=== PATIENT | female | born 1970 | race African-American/Black ===

== ENCOUNTER 2016-06-11 08:22 | Emergency (ER) | payer MEDICAID ==
--- NOTE | 2016-06-11 09:16 | ER Document Report ---
ED General - General Chief Complaint: Wrist Pain Stated Complaint: WRIST PAIN Mode of Arrival: Ambulatory Information source: Patient Notes: 45 yr old female presents with complaitns of left wrist pain. pt denies any fevers or chills, nausea or vomiting. pt notes that she has been serving her whole life, notes she is left handed. denies any trauma TRAVEL OUTSIDE OF THE [place] IN LAST 30 DAYS: No - HPI Onset: Just prior to arrival Onset/Duration: Sudden Quality of pain: Achy Severity: Mild Pain Level: 1 Associated symptoms: Body/muscle aches Exacerbated by: Movement Relieved by: Denies Similar symptoms previously: No Recently seen / treated by doctor: No - Related Data Allergies/Adverse Reactions: No Known Allergies Allergy (Verified 06/11/16 08:26) Past Medical History - Social History Smoking Status: Unknown if Ever Smoked Cigarette use (# per day): No Chew tobacco use (# tins/day): No Smoking Education Provided: No Frequency of alcohol use: None Drug Abuse: None Family History: Arthritis, DM, Hyperlipidemia, Hypertension Patient has suicidal ideation: No Patient has homicidal ideation: No Renal/ Medical History: Reports: Hx Ectopic . Denies: Hx Peritoneal Dialysis Past Surgical History: Reports: Hx Gynecologic Surgery - ectopic - Immunizations Immunizations up to date: Yes Hx Diphtheria, Pertussis, Tetanus Vaccination: Yes Review of Systems - Review of Systems Notes: REVIEW OF SYSTEMS: CONSTITUTIONAL : Denies fever, chills, or sweats. Denies recent illness. EENT: Denies eye, ear, throat, or mouth pain or symptoms. Denies nasal or sinus congestion or discharge. Denies throat, tongue, or mouth swelling or difficulty swallowing. CARDIOVASCULAR: Denies chest pain. Denies palpitations or racing or irregular heart beat. Denies ankle edema. RESPIRATORY: Denies cough, cold, or chest congestion. Denies shortness of breath, difficulty breathing, or wheezing. GASTROINTESTINAL: Denies abdominal pain or distention. Denies nausea, vomiting , or diarrhea. Denies blood in vomitus, stools, or per rectum. Denies black, tarry stools. Denies constipation. GENITOURINARY: Denies difficulty urinating, painful urination, burning, frequency, blood in urine, or discharge. FEMALE GENITOURINARY: Denies vaginal bleeding, heavy or abnormal periods, irregular periods. Denies vaginal discharge or odor. MUSCULOSKELETAL: wrist pain SKIN: Denies rash, lesions or sores. HEMATOLOGIC : Denies easy bruising or bleeding. LYMPHATIC: Denies swollen, enlarged glands. NEUROLOGICAL: Denies confusion or altered mental status. Denies passing out or loss of consciousness. Denies dizziness or lightheadedness. Denies headache. Denies weakness or paralysis or loss of use of either side. Denies problems with gait or speech. Denies sensory loss, numbness, or tingling. Denies seizures. PSYCHIATRIC: Denies anxiety or stress. Denies depression, suicidal ideation, or homicidal ideation. ALL OTHER SYSTEMS REVIEWED AND NEGATIVE. Dictation was performed using [employer] voice recognition software PHYSICAL EXAMINATION: GENERAL: Well-appearing, well-nourished and in no acute distress. HEAD: Atraumatic, normocephalic. EYES: Pupils equal round and reactive to light, extraocular movements intact, conjunctiva are normal. ENT: Nares patent, oropharynx clear without exudates. Moist mucous membranes. NECK: Normal range of motion, supple without lymphadenopathy LUNGS: Breath sounds clear to auscultation bilaterally and equal. No wheezes rales or rhonchi. HEART: Regular rate and rhythm without murmurs ABDOMEN: Soft, nontender, nondistended abdomen. No guarding, no rebound. No masses appreciated. Female : deferred Musculoskeletal: tenderness at the distal radius ulnar , no deformity NEUROLOGICAL: Cranial nerves grossly intact. Normal speech, normal gait. Normal sensory, motor exams PSYCH: Normal mood, normal affect. SKIN: Warm, Dry, normal turgor, no rashes or lesions noted. Physical Exam - Vital signs Vitals: Temp Pulse Resp BP Pulse Ox 97.5 F 66 16 144/92 H 98 06/11/16 08:27 06/11/16 08:27 06/11/16 08:27 06/11/16 08:27 06/11/16 08:27 Course - Re-evaluation Re-evalutation: 06/11/16 09:33 X-ray noted no significant abnormality, I believe this is secondary to overuse. Patient will be placed in a cock-up splint and is otherwise stable for discharge to follow-up with orthopedics After performing a Medical Screening Examination, I estimate there is LOW risk for INTRACRANIAL HEMORRHAGE, UNSTABLE SPINE FRACTURE, CENTRAL CORD SYNDROME, CAUDA EQUINA, THORACIC AORTIC DISSECTION, PNEUMOTHORAX, PERFORATED BOWEL, RUPTURED ABDOMINAL AORTIC ANEURYSM, ACUTE TENDON RUPTURE, COMPARTMENT SYNDROME, or OPEN FRACTURE, thus I consider the discharge disposition reasonable. Also, there is no evidence or peritonitis, sepsis, or toxicity. The patient and I have discussed the diagnosis and risks, and we agree with discharging home to follow-up with their primary doctor with the understanding that symptoms and presentations can change. We also discussed returning to the Emergency Department immediately if new or worsening symptoms occur. We have discussed the symptoms which are most concerning (e.g., bloody stool, fever, changing or worsening pain, vomiting) that necessitate immediate return. - Vital Signs Vital signs: Temp Pulse Resp BP Pulse Ox 97.5 F 66 16 144/92 H 98 06/11/16 08:27 06/11/16 08:27 06/11/16 08:27 06/11/16 08:27 06/11/16 08:27 - Diagnostic Test Radiology reviewed: Image reviewed, Reports reviewed Procedures - Immobilization Left Wrist Time completed: 09:34 Pre-Proc Neuro Vasc Exam: Normal Immobilizer type: Cock-up Performed by: PCT Post-Proc Neuro Vasc Exam: Normal Alignment checked and good: Yes Discharge - Discharge Clinical Impression: Wrist pain Qualifiers: Laterality: left Qualified Code(s): M25.532 - Pain in left wrist Strain of wrist Qualifiers: Encounter type: initial encounter Laterality: left Qualified Code(s): S66.912A - Strain of unspecified muscle, fascia and tendon at wrist and hand level, left hand, initial encounter Condition: Stable Disposition: HOME, SELF-CARE Additional Instructions: Evaluation today notes no fracture, I believe your pain is secondary to overuse. Please allow patient to work with dishes and limit movement of left wrist for 2 weeks Prescriptions: Naproxen 500 mg PO BID #30 tablet Referrals: JYOTI PHOENIX DO [ACTIVE STAFF] - Follow up in 1 week
[2016-06-11 09:42] VITALS: BP 123/86
== END 2016-06-11 09:42 | disposition home or self-care (01) ==
LOC: ER 08:22
DX: S66.912A Strain of unspecified muscle, fascia and tendon at wrist and hand level, left hand, initial encounter (principal); M25.532 Pain in left wrist; X58.XXXA Exposure to other specified factors, initial encounter
CPT/HCPCS: 99283; 73110; L3984

== ENCOUNTER → 2016-09-08 | Outpatient (CLI) | payer MEDICAID ==
--- NOTE | 2016-09-08 10:34 | WOMENS IMAGING REPORT ---
EXAM DESCRIPTION: BILAT SCREENING MAMMO W/CAD COMPLETED DATE/TIME: 09/08/2016 7:41 am REASON FOR STUDY: Z12.31, ROUTINE SCREENING MAMMO Z12.31 ENCNTR SCREEN MAMMOGRAM FOR MALIGNANT NEOP LASM OF [place] COMPARISON: Baseline TECHNIQUE: Standard craniocaudal and mediolateral oblique views of each breast recorded using Epiclista l acquisition. LIMITATIONS: None. FINDINGS: No masses, calcifications or architectural distortion. No areas of suspicion. Read with the assistance of CAD. .[facility] - R2 Cenova Version 1.3 .[facility] - R2 Cenova Version 1.3 .[facility] - R2 Cenova Version 2.4 .[facility] [place] R2 Cenova Version 2.4 .[facility] - R2 Restaurant District Manager Version 9.2 IMPRESSION: NORMAL MAMMOGRAM. BIRADS 1. BREAST DENSITY: b. There are scattered areas of fibroglandular density. BIRAD: 1 NEGATIVE RECOMMENDATION: ROUTINE SCREENING COMMENT: The patient has been notified of the results by letter per MQSA requirements. Additional no tification policies are in place for contacting patient with suspicious or incomplete findings. Quality ID #[id number]: The [employer] recommends an annual screening mammogram for women aged 40 years or over. This facility utilizes a reminder system to ensure that all patients receive reminder letters, and/or direct phone calls for appointments. This includes reminders for routine scr eening mammograms, diagnostic mammograms, or other Breast Imaging Interventions when appropriate. Th is patient will be placed in the appropriate reminder system. The [employer] (ACR) has developed recommendations for screening MRI of the breast s in certain patient populations, to be used in conjunction with mammography. Breast MRI surveillanc e may be appropriate for women with more than 20% lifetime risk of developing breast cancer as deter mined by genetic testing, significant family history of the disease, or history of mantle radiation f or Hodgkins Disease. ACR Practice Guidelines 2008. TECHNICAL DOCUMENTATION: FINDING NUMBER: (1) ASSESSMENT: (1) JOB ID: [id number] [employer]- All Rights Reserved
== END ==
LOC: WI 07:20
PROVIDERS: ATTEND Family Medicine
DX: Z12.31 Encounter for screening mammogram for malignant neoplasm of breast (principal)
CPT/HCPCS: 77067; G0202

== ENCOUNTER 2017-01-18 07:09 | Emergency (ER) | payer SELFPAY ==
[2017-01-18 07:14] VITALS: BP 140/86
--- NOTE | 2017-01-18 07:35 | ER Document Report ---
HPI - HPI Patient complains to provider of: rash Onset: Other - one month Pain Level: 3 Context: Patient is a 46 year old female who presents to the ED complaining of rash on her chest between her breasts for one month. She describes it as red, itchy and flat. She denies any new household/bathing products. Denies any allergies. Has not resolved nor has t spread. She denies any burning, sharp pain radiating around her chest. Otherwise healthy female - REPRODUCTIVE Reproductive: DENIES: : - DERM Skin Color: Normal Past Medical History - Social History Smoking Status: Unknown if Ever Smoked Chew tobacco use (# tins/day): No Frequency of alcohol use: Occasional Drug Abuse: None Family History: Arthritis, DM, Hyperlipidemia, Hypertension Patient has suicidal ideation: No Patient has homicidal ideation: No - Past Medical History Cardiac Medical History: Denies: Hx Coronary Artery Disease, Hx Heart Attack, Hx Hypertension Pulmonary Medical History: Denies: Hx Asthma, Hx Bronchitis, Hx COPD, Hx Pneumonia Neurological Medical History: Denies: Hx Cerebrovascular Accident, Hx Seizures Renal/ Medical History: Reports: Hx Ectopic . Denies: Hx Peritoneal Dialysis Musculoskeltal Medical History: Denies Hx Arthritis Past Surgical History: Reports: Hx Gynecologic Surgery - ectopic , Hx Orthopedic Surgery - left wrist - Immunizations Immunizations up to date: Yes Hx Diphtheria, Pertussis, Tetanus Vaccination: Yes - "Last year" Vertical Provider Document - CONSTITUTIONAL Agree With Documented VS: Yes Exam Limitations: No Limitations General Appearance: WD/WN, No Apparent Distress - INFECTION CONTROL TRAVEL OUTSIDE OF THE [place] IN LAST 30 DAYS: No - RESPIRATORY O2 Sat by Pulse Oximetry: 96 - CARDIOVASCULAR Pulses: Normal: Radial - MUSCULOSKELETAL/EXTREMETIES Musculoskeletal/Extremeties: MAEW, FROM, Non-Tender - NEURO Level of Consciousness: Awake, Alert, Appropriate - DERM Integumentary: Warm, Dry, Rash - patch of erythema on her chest this is slighty raised, no evidence of vesicular rash. Course - Re-evaluation Re-evalutation: 01/18/17 8:00 Patient is a 46 year old female who is hemodynamically stable, no acute distress and afebrile. Presentation today is consistent with tinea corporis. Low clinical suspicion for shingles given absence of pain, vesicular disease and dermatome distribution. Low suspicion for contact dermatitis given rash has no distribution consistent with contact dermatitis. Will treat with topical antifungal and can f/u with PCP in one week - Vital Signs Vital signs: Temp Pulse Resp BP Pulse Ox 98.2 F 64 18 140/86 H 96 01/18/17 07:12 01/18/17 07:12 01/18/17 07:12 01/18/17 07:12 01/18/17 07:12 Discharge - Discharge Clinical Impression: Rash Condition: Good Disposition: HOME, SELF-CARE Instructions: Skin Fungus ([facility]) Prescriptions: Clotrimazole 1% Topical [Lotrimin 1% Topical Soln 10 ml] 15 applic TP BID #1 bottle Forms: Return to Work
== END 2017-01-18 08:37 | disposition home or self-care (01) ==
LOC: ER 07:09
DX: R21 Rash and other nonspecific skin eruption (principal)
CPT/HCPCS: 99282

== ENCOUNTER 2018-04-16 23:50 | Emergency (ER) | payer SELFPAY ==
[2018-04-17] MEDS ORDERED: DEXAMETHASONE SOD PHOS INJ 10 MG/1 ML VIAL IM ONE (01:47)
--- NOTE | 2018-04-17 01:49 | ER Document Report ---
HPI - HPI Patient complains to provider of: neck pain Time Seen by Provider: 04/17/18 01:25 Pain Level: 1 Context: Patient is a 47-year-old female that comes to the emergency department for chief complaint of swollen areas under her chin and on her neck in the front that are mobile and mildly tender. She states these have worsened over the past 24 hours. She reports mild throat irritation but no overt sore throat. She has minimal congestion. No fever. Denies difficulty breathing or swallowing. Denies any other complaints. Takes no daily medications. Denies any past medical history. - CONSTITUTIONAL Constitutional: DENIES: Fever, Chills - EENT EENT: REPORTS: Sore Throat - knots on outsid - CARDIOVASCULAR Cardiovascular: DENIES: Chest pain - RESPIRATORY Respiratory: DENIES: Coughing - REPRODUCTIVE Reproductive: DENIES: : Past Medical History - General Information source: Patient - Social History Smoking Status: Never Smoker Chew tobacco use (# tins/day): No Frequency of alcohol use: Rare Drug Abuse: None Lives with: Family Family History: Arthritis, DM, Hyperlipidemia, Hypertension Patient has suicidal ideation: No Patient has homicidal ideation: No - Medical History Medical History: Negative - Past Medical History Cardiac Medical History: Denies: Hx Coronary Artery Disease, Hx Heart Attack, Hx Hypertension Pulmonary Medical History: Denies: Hx Asthma, Hx Bronchitis, Hx COPD, Hx Pneumonia Neurological Medical History: Denies: Hx Cerebrovascular Accident, Hx Seizures Renal/ Medical History: Reports: Hx Ectopic . Denies: Hx Peritoneal Dialysis Musculoskeletal Medical History: Denies Hx Arthritis Past Surgical History: Reports: Hx Gynecologic Surgery - ectopic , Hx Orthopedic Surgery - left wrist - Immunizations Immunizations up to date: Yes Hx Diphtheria, Pertussis, Tetanus Vaccination: Yes - "Last year" Vertical Provider Document - CONSTITUTIONAL General Appearance: WD/WN, No Apparent Distress - INFECTION CONTROL TRAVEL OUTSIDE OF THE [place] IN LAST 30 DAYS: No - HEENT HEENT: Atraumatic, Normocephalic. negative: Normal ENT Exam - Erythema of the posterior pharynx without significant swelling, exudates, or evidence of peritonsillar abscess. Oral pharyngeal exam unremarkable otherwise. ENT exam unremarkable otherwise. - NECK Neck: Other - Bilateral mild anterior cervical adenopathy and slight submental adenopathy as well. No evidence of submandibular cellulitis. - RESPIRATORY Respiratory: Breath Sounds Normal, No Respiratory Distress - CARDIOVASCULAR Cardiovascular: Regular Rate, Regular Rhythm - GI/ABDOMEN Gastrointestinal: Abdomen Soft, Abdomen Non-Tender - MUSCULOSKELETAL/EXTREMETIES Musculoskeletal/Extremeties: MAEW, FROM, Non-Tender - NEURO Level of Consciousness: Awake, Alert, Appropriate - DERM Integumentary: Warm, Dry, No Rash Course - Re-evaluation Re-evalutation: Physical examination showing lymphadenopathy, strep test is positive. No evidence of abscess at this time. Appears to be early strep. Discussed treatment with patient, she prefers oral medication. Given dexamethasone. Discussed follow-up and return precautions. Patient states understanding and agreement. - Vital Signs Vital signs: Temp Pulse Resp BP Pulse Ox 98.0 F 70 16 127/87 H 97 04/17/18 00:36 04/17/18 00:36 04/17/18 00:36 04/17/18 00:36 04/17/18 00:36 Discharge - Discharge Clinical Impression: Strep pharyngitis, Anterior cervical adenopathy Condition: Stable Disposition: HOME, SELF-CARE Additional Instructions: You have strep pharyngitis. This has caused swelling of the lymph nodes along your neck. Take antibiotic as prescribed to completion. Take Tylenol or ibuprofen for pain. Return for any concerning or worsening symptoms including severe swelling, difficulty swallowing, spiking fevers, or any other concerning or worsening symptoms. Prescriptions: Penicillin V Potassium [Penicillin Vk 500 mg Tablet] 500 mg PO BID #20 tablet Forms: Return to Work
[2018-04-17] MEDS ORDERED: PENICILLIN V POTASSIUM 500 MG TABLET PO ONE (02:38)
[2018-04-17 02:55] VITALS: BP 137/93
== END 2018-04-17 02:55 | disposition home or self-care (01) ==
LOC: ER 23:50
DX: J02.0 Streptococcal pharyngitis (principal); R59.0 Localized enlarged lymph nodes; M54.2 Cervicalgia
CPT/HCPCS: 99283; 96372; 87880; J1100

== ENCOUNTER 2018-11-01 15:02 | Emergency (ER) | payer OTHER ==
[2018-11-01 16:50] LABS: ABSOLUTE EOSINOPHILS # (AUTO) 0.2 10^3/uL (0.0-0.6); ABSOLUTE LYMPHOCYTES (AUTO) 2.6 10^3/uL (0.5-4.7); ABSOLUTE MONOCYTES (AUTO) 0.3 10^3/uL (0.1-1.4); ABSOLUTE NEUT (AUTO) 3.4 10^3/uL (1.7-8.2); BASOPHILS % (AUTO) 0.2 % (0-2); EOSINOPHILS % (AUTO) 2.4 % (0-6); HEMATOCRIT 41.4 % (36.0-47.0); HEMOGLOBIN 14.1 g/dL (12.0-15.5); LYMPHOCYTES % (AUTO) 39.9 % (13-45); MEAN CORPUSCULAR HEMOGLOBIN 29.6 pg (27.0-33.4); MEAN CORPUSCULAR VOLUME 87 fl (80-97); PLATELET COUNT 271 10^3/uL (150-450); RED BLOOD COUNT 4.76 10^6/uL (3.72-5.28); RED CELL DISTRIBUTION WIDTH 13.8 % (11.5-14.0); SEGMENTED NEUTROPHILS % (AUTO) 52.5 % (42-78); TOTAL CELLS COUNTED % (AUTO) 100 %; WHITE BLOOD COUNT 6.6 10^3/uL (4.0-10.5)
[2018-11-01 17:14] LABS: ALANINE AMINOTRANSFERASE 18 U/L (9-52); ALBUMIN 4.2 g/dL (3.5-5.0); ALKALINE PHOSPHATASE 102 U/L (38-126); ANION GAP 6 (5-19); ASPARTATE AMINO TRANSFERASE 18 U/L (14-36); BILIRUBIN,DIRECT 0.2 mg/dL (0.0-0.4); BILIRUBIN,TOTAL 0.4 mg/dL (0.2-1.3); BLOOD UREA NITROGEN 9 mg/dL (7-20); CALCIUM 9.9 mg/dL (8.4-10.2); CARBON DIOXIDE 33 mmol/L (22-30); CHLORIDE 103 mmol/L (98-107); GLUCOSE 102 mg/dL (75-110); TOTAL PROTEIN 7.5 g/dL (6.3-8.2)
[2018-11-01 18:01] LABS: APPEARANCE,URINE CLEAR; BILIRUBIN,URINE NEGATIVE (NEGATIVE); COLOR,URINE YELLOW; GLUCOSE, URINE NEGATIVE (NEGATIVE); KETONES,URINE NEGATIVE (NEGATIVE); LEUKOCYTE ESTERASE,URINE NEGATIVE (NEGATIVE); NITRITE,URINE NEGATIVE (NEGATIVE); PROTEIN,URINE NEGATIVE (NEGATIVE); URINE SPECIFIC GRAVITY 1.026
[2018-11-01] MEDS ORDERED: KETOROLAC TROMETHAMINE 60 MG/2 ML SDV IM ONE (18:05)
[2018-11-01] MEDS ORDERED: LIDOCAINE 5% (700 MG) TRANSDERMAL ADH..PATCH TP ONE (18:05)
[2018-11-01] MEDS ORDERED: CYCLOBENZAPRINE HCL 10 MG TABLET PO ONE (18:05)
--- NOTE | 2018-11-01 18:11 | ER Document Report ---
ED General - General Chief Complaint: Back Pain Stated Complaint: LEFT SIDE/LOWER BACK PAIN Time Seen by Provider: 11/01/18 16:15 Notes: Patient is a 40-year-old female presents to the emergency department for right back pain. Patient states 2 days ago she feels as though she may have been sleeping worried in bed. States she woke up with generalized right lower back pain. Patient also complaining of some generalized urinary frequency, denies dysuria. Patient's denying any trauma or injury to her back or any history of kidney stones. Patient's denying any numbness or tingling in any extremity. Patient's denying any urinary retention, loss of bowel or bladder. Patient's denying any medical problems, denies any daily medications, denies any allergies. TRAVEL OUTSIDE OF THE [place] IN LAST 30 DAYS: No - Related Data Allergies/Adverse Reactions: No Known Allergies Allergy (Verified 01/18/17 07:10) Past Medical History - General Information source: Patient - Social History Smoking Status: Unknown if Ever Smoked Chew tobacco use (# tins/day): No Frequency of alcohol use: Occasional Drug Abuse: None Family History: Arthritis, DM, Hyperlipidemia, Hypertension Patient has suicidal ideation: No Patient has homicidal ideation: No - Past Medical History Cardiac Medical History: Denies: Hx Coronary Artery Disease, Hx Heart Attack, Hx Hypertension Pulmonary Medical History: Denies: Hx Asthma, Hx Bronchitis, Hx COPD, Hx Pneumonia Neurological Medical History: Denies: Hx Cerebrovascular Accident, Hx Seizures Renal/ Medical History: Reports: Hx Ectopic . Denies: Hx Peritoneal Dialysis Musculoskeletal Medical History: Denies Hx Arthritis Past Surgical History: Reports: Hx Gynecologic Surgery - ectopic , Hx Orthopedic Surgery - left wrist - Immunizations Immunizations up to date: Yes Hx Diphtheria, Pertussis, Tetanus Vaccination: Yes - "Last year" Review of Systems - Review of Systems Constitutional: denies: Fever EENT: No symptoms reported Cardiovascular: No symptoms reported Respiratory: No symptoms reported Gastrointestinal: No symptoms reported Genitourinary: No symptoms reported Female Genitourinary: See HPI Musculoskeletal: See HPI Skin: No symptoms reported Hematologic/Lymphatic: No symptoms reported Neurological/Psychological: No symptoms reported Physical Exam - Vital signs Vitals: Temp Pulse Resp BP Pulse Ox 97.6 F 70 24 H 119/80 95 11/01/18 15:26 11/01/18 15:26 07/25/19 15:26 11/01/18 15:26 11/01/18 15:26 - Notes Notes: GENERAL: Alert, interacts well. No acute distress. HEAD: Normocephalic, atraumatic. EYES: Pupils equal, round, and reactive to light. Extraocular movements intact. ENT: Oral mucosa moist, tongue midline. NECK: Full range of motion. Supple. Trachea midline. LUNGS: Clear to auscultation bilaterally, no wheezes, rales, or rhonchi. No respiratory distress. HEART: Regular rate and rhythm. No murmur ABDOMEN: Soft, non-tender. Non-distended. Bowel sounds present in all 4 quadrants. EXTREMITIES: Moves all 4 extremities spontaneously. No edema, normal radial and dorsalis pedis pulses bilaterally. No cyanosis. BACK: no cervical, thoracic, lumbar midline tenderness. No saddle anesthesia, normal distal neurovascular exam. Generalized right paraspinal lumbar pain noted. Patient's also complaining of upper right back pain more consistent with CVA tenderness. NEUROLOGICAL: Alert and oriented x3. Normal speech. cranial nerves II through XII grossly intact PSYCH: Normal affect, normal mood. SKIN: Warm, dry, normal turgor. No rashes or lesions noted. Course - Re-evaluation Re-evalutation: Upon initial evaluation of the patient she is sitting using her cellular device. As I walk into the room patient looks up, puts her phone down and then starts crying. States the pain in her right lower back is "so bad I can't even move." Patient is denying any spinal tenderness upon palpation. Patient is complaining of generalized right paraspinal with also some right CVA tenderness noted. Labs are unremarkable with no change in patient's kidney function, no signs of urinary tract infection. No signs of obvious blood on patient's urine. Discussed with patient muscle strain versus doing a CT image for potential kidney stones. Patient is wishing to decline CT imaging at this time. Patient states she feels as though she may have "slept on it wrong." Patient was treated with Toradol, Flexeril, Lidoderm in the emergency department with pain relief. Presentation of a well appearing patient complaining of acute back pain. No rapid progression of symptoms, systemic symptoms including fevers, chills, weight loss, history of recent bacterial infection, bilateral symptoms, numbness, weakness, difficulty walking, urinary retention or bowel incontinence, personal history of cancer, immunosuppression, diabetes, known AAA, or history of IV drug use. Exam is without point tenderness over vertebral bodies, pulsatile abdominal mass, and patient has symmetric and intact lower extremity s trength, sensation, and reflexes without clonus. 2+ symmetric medial malleolar and dorsalis pedis pulses Based on history and physical, I have a very low suspicion of a concerning etiology of pain including epidural compression syndrome, spinal infection, transverse myelitis, malignancy, abdominal aortic aneurysm, renal colic, acute lower extremity claudication, neurogenic claudication, ankylosing spondylitis, or other intra-abdominal process. Due to absence of concerning risk factors in history and physical as well as absence of rapidly progressive, severe, or bilateral symptoms, will defer imaging at this point. At this time will discharge with return precautions and follow-up recomm endations. Verbal discharge instructions given a the bedside and opportunity for questions given. Medication warnings reviewed. Patient is in agreement with this plan and has verbalized understanding of return precautions and the need for primary care follow-up in the next 24-72 hours. This medical record was dictated with voice recognizing software. There may be grammatical, syntax errors that are unintended. - Vital Signs Vital signs: Temp Pulse Resp BP Pulse Ox 97.6 F 70 24 H 119/80 95 11/01/18 15:26 11/01/18 15:26 11/01/18 15:26 11/01/18 15:26 11/01/18 15:26 - Laboratory Result Diagrams: 11/01/18 16:30 11/01/18 16:30 Laboratory results interpreted by me: 11/01/18 11/01/18 16:30 16:30 Carbon Dioxide 33 H Urine Urobilinogen 2.0 H Discharge - Discharge Clinical Impression: Lumbar back pain Condition: Stable Disposition: HOME, SELF-CARE Instructions: Muscle Strain ([facility]), Pain Medication Injection ([facility]), Warm Packs ([facility]), Low Back Pain ([facility]) Additional Instructions: You have been seen in the Emergency Department (ED) today for back pain. Your workup and exam have not shown any acute abnormalities and you are likely suffering from muscle strain or possible problems with your discs, but there is no treatment that will fix your symptoms at this time. Please take the naproxen that has been prescribed as directed. You should also purchase a local lidocaine cream such as "aspercreme with lidocaine" and use per bottle instructions to the affected area. Apply heat to the area as often as you are able. Continue to keep active and avoid prolonged periods of bed rest. Please follow up with your doctor as soon as possible regarding today's ED visit and your back pain. Return to the ED for worsening back pain, fever, weakness or numbness of either leg, or if you develop either (1) an inability to urinate or have bowel movements, or (2) loss of your ability to control your bathroom functions (if you start having "accidents"), or if you develop other new symptoms that concern you.concern you. Prescriptions: Cyclobenzaprine HCl [Flexeril 10 mg Tablet] 10 mg PO TIDP PRN #15 tab PRN Reason: Forms: Return to Work Referrals: BALBIR PIERCE MD [ACTIVE PROVISIONAL STAFF] - Follow up as needed
[2018-11-01 18:28] VITALS: BP 119/78
== END 2018-11-01 18:53 | disposition home or self-care (01) ==
LOC: ER 15:02
DX: M54.5 Low back pain (principal); R35.0 Frequency of micturition
CPT/HCPCS: 99283; 96372; 36415; 87086; 84702; 85025; 80053; 81001; J1885

== ENCOUNTER 2019-04-16 22:27 | Emergency (ER) | payer OTHER ==
--- NOTE | 2019-04-16 23:34 | RADIOLOGY REPORT (SQ) ---
EXAM DESCRIPTION: XR CHEST 2 VIEWS COMPLETED DATE/TME: 04/16/2019 00:00 CLINICAL HISTORY: 48 years, Female, cough EXAM DESCRIPTION: CLINICAL HISTORY: cough COMPARISON: None. FINDINGS: Two views of the chest are submitted. Cardiac silhouette appears normal. No focal parenchymal or pleural disease. No acute bony abnormality. There is no significant pulmonary vascular engorgement. IMPRESSION: No evidence of acute cardiopulmonary disease.
[2019-04-17] MEDS ORDERED: BUTALB/ACETAMINOPHEN/CAFFEINE 1 TAB EACH PO ONE (00:11)
--- NOTE | 2019-04-17 00:17 | ER Document Report ---
ED General - General Chief Complaint: Cough Stated Complaint: HEAD PAIN/COUGH/NECK PAIN/FEVER Time Seen by Provider: 04/16/19 23:47 Mode of Arrival: Ambulatory Information source: Patient TRAVEL OUTSIDE OF THE [place] IN LAST 30 DAYS: No - HPI Onset: Other - 1 week ago Onset/Duration: Gradual Quality of pain: Pressure, Throbbing Severity: Severe Pain Level: 5 Associated symptoms: Nonproductive cough, Other - low grade fevers Exacerbated by: Denies Relieved by: Denies Similar symptoms previously: No Recently seen / treated by doctor: No Notes: 48 year old female with no known PMH here for 1 week of a headaches, cough, congestion, and low grade fevers. The patient denies fevers above 100F, chills, sweats, neck stiffness, vision changes, sick contacts, recent travel. The patient is having some mild shortness of breath however. The patient says the headache and other symptoms came on gradually over the last week. The patient does not normally have headaches so she does say this is the worst headache of her life. - Related Data Allergies/Adverse Reactions: No Known Allergies Allergy (Verified 01/18/17 07:10) Past Medical History - Social History Smoking Status: Never Smoker Frequency of alcohol use: Occasional Drug Abuse: None Lives with: Family Family History: Arthritis, DM, Hyperlipidemia, Hypertension Patient has suicidal ideation: No Patient has homicidal ideation: No - Past Medical History Cardiac Medical History: Denies: Hx Coronary Artery Disease, Hx Heart Attack, Hx Hypertension Pulmonary Medical History: Denies: Hx Asthma, Hx Bronchitis, Hx COPD, Hx Pneumonia Neurological Medical History: Denies: Hx Cerebrovascular Accident, Hx Seizures Renal/ Medical History: Reports: Hx Ectopic . Denies: Hx Peritoneal Dialysis Musculoskeletal Medical History: Denies Hx Arthritis Past Surgical History: Reports: Hx Gynecologic Surgery - ectopic , Hx Orthopedic Surgery - left wrist - Immunizations Immunizations up to date: Yes Hx Diphtheria, Pertussis, Tetanus Vaccination: Yes - "Last year" Review of Systems - Review of Systems Constitutional: No symptoms reported EENT: Nose congestion Cardiovascular: No symptoms reported Respiratory: Cough Gastrointestinal: No symptoms reported Genitourinary: No symptoms reported Female Genitourinary: No symptoms reported Musculoskeletal: No symptoms reported Skin: No symptoms reported Hematologic/Lymphatic: No symptoms reported Neurological/Psychological: Headaches Physical Exam - Vital signs Vitals: Temp Pulse Resp BP Pulse Ox 98.6 F 77 16 126/75 H 95 04/16/19 22:32 04/16/19 22:32 04/16/19 22:32 04/16/19 22:32 04/16/19 22:32 - Notes Notes: GENERAL: Well-appearing, well-nourished and in no acute distress. HEAD: Atraumatic, normocephalic. EYES: Pupils equal round and reactive to light, extraocular movements intact, sclera anicteric, conjunctiva are normal. ENT: TMs normal, nares patent, oropharynx clear without exudates. Moist mucous membranes. NECK: Normal range of motion, supple without lymphadenopathy or JVD. LUNGS: Breath sounds clear to auscultation bilaterally and equal. No wheezes rales or rhonchi. HEART: Regular rate and rhythm without murmurs, rubs or gallops. ABDOMEN: Soft, nontender, normoactive bowel sounds. No guarding, no rebound. No masses appreciated. EXTREMITIES: Normal range of motion, no pitting or edema. No clubbing or cyanosis. NEUROLOGICAL: Cranial nerves II through XII grossly intact. Normal speech, normal gait. PSYCH: Normal mood, normal affect. SKIN: Warm, Dry, normal turgor, no rashes or lesions noted. Course - Re-evaluation Re-evalutation: 04/17/19 03:[address] shows hypodensity which could be a stroke. The patient's symptoms are not exactly consistent with a stroke but plan will be to obtain labs and to perform an MRI in the morning to rule out a stroke. To me, it sounds like the patient has a viral syndrome and subsequent headache. Only obtained a CT head since the patient says she never has headaches and this is the worst headache of her life. Patient felt slightly better after treatment with Fioricet. Chest Xray shows no acute process. 04/17/19 03:21 04/17/19 04:48 The patient's labs are unremarkable and the patient was able to rest comfortably in the ER. Fioricet helped some but continued to have a headache so PO Toradol and PO Reglan was given. Plan is still for patient to have an MRI first thing in the AM to rule out a stroke. Patient signed out to oncoming ER doctor at shift change. - Vital Signs Vital signs: Temp Pulse Resp BP Pulse Ox 97.8 F 73 17 126/85 H 96 04/17/19 02:57 04/17/19 02:57 04/17/19 04:06 04/17/19 04:06 04/17/19 04:06 - Laboratory Result Diagrams: 04/17/19 03:12 04/17/19 03:12 Laboratory results interpreted by me: 04/17/19 04/17/19 03:12 03:12 Eos % (Auto) 6.2 H Carbon Dioxide 33 H - Diagnostic Test Radiology reviewed: Image reviewed, Reports reviewed - EKG Interpretation by Me EKG shows normal: Sinus rhythm, Sharon, Intervals, QRS Complexes Rate: Normal Additional EKG results interpreted by me: 04/17/19 03:18 T wave inversions in aVR, aVL, V1 Discharge - Discharge Clinical Impression: Headache Qualifiers: Headache type: unspecified Headache chronicity pattern: unspecified pattern Intractability: not intractable Qualified Code(s): R51 - Headache Upper respiratory infection Qualifiers: URI type: unspecified URI Qualified Code(s): J06.9 - Acute upper respiratory infection, unspecified Condition: Stable Disposition: HOME, SELF-CARE Additional Instructions: Use Fioricet as needed for headaches alone with over the counter Motrin. Follow up with a primary care doctor such as Dr. Walker. You had blood work and imaging (Chest Xray, Head CT, Head MRI) today in the ER. Prescriptions: Butalb/Acetaminophen/Caffeine [Fioricet (50-325-40 mg) Tablet] 1 tab PO Q8HP PRN #15 tab PRN Reason:
--- NOTE | 2019-04-17 02:34 | RADIOLOGY REPORT (SQ) ---
EXAM DESCRIPTION: [facility]: CT HEAD WITHOUT IV CONTRAST CLINICAL HISTORY: 48 years Female; states chills, fever, body aches, dry cough and headache for a week. TECHNIQUE: Noncontrast CT head. All CT scans at this facility use dose modulation, iterative reconstruction, and/or weight based dosing when appropriate to reduce radiation dose to as low as reasonably achievable. COMPARISON: None. FINDINGS: No acute hemorrhage or mass effect. Ventricles and cisterns are preserved. There is a 6 mm area of slight hypodensity in the inferior right basal ganglia, likely a perivascular space. No acute cortical edema. Visualized portions of paranasal sinuses and mastoids are clear. Visualized portions of the calvarium are within normal limits. IMPRESSION: 1. No acute hemorrhage or mass effect 2. indeterminate 6 mm hypodensity in the right basal ganglia. If the clinical symptoms suggest possible right basal ganglia lacunar infarct, MRI may be warranted.
[2019-04-17 03:26] LABS: INTERNATIONAL RATION (INR) 0.92; PROTHROMBIN TIME 12.3 SEC (11.4-15.4)
[2019-04-17 03:30] LABS: ABSOLUTE BASOPHILS # (AUTO) 0.1 10^3/uL (0.0-0.2); ABSOLUTE EOSINOPHILS # (AUTO) 0.5 10^3/uL (0.0-0.6); ABSOLUTE LYMPHOCYTES (AUTO) 2.2 10^3/uL (0.5-4.7); ABSOLUTE MONOCYTES (AUTO) 0.5 10^3/uL (0.1-1.4); ABSOLUTE NEUT (AUTO) 4.1 10^3/uL (1.7-8.2); BASOPHILS % (AUTO) 0.9 % (0-2); EOSINOPHILS % (AUTO) 6.2 % (0-6); HEMATOCRIT 39.7 % (36.0-47.0); HEMOGLOBIN 13.5 g/dL (12.0-15.5); LYMPHOCYTES % (AUTO) 30.3 % (13-45); MEAN CORPUSCULAR HEMOGLOBIN 29.6 pg (27.0-33.4); MEAN CORPUSCULAR HGB CONC 33.9 g/dL (32.0-36.0); MEAN CORPUSCULAR VOLUME 87 fl (80-97); MONOCYTES % (AUTO) 6.4 % (3-13); PLATELET COUNT 233 10^3/uL (150-450); RED BLOOD COUNT 4.55 10^6/uL (3.72-5.28); RED CELL DISTRIBUTION WIDTH 13.7 % (11.5-14.0); SEGMENTED NEUTROPHILS % (AUTO) 56.2 % (42-78); TOTAL CELLS COUNTED % (AUTO) 100 %; WHITE BLOOD COUNT 7.3 10^3/uL (4.0-10.5)
[2019-04-17 03:50] LABS: ALBUMIN 3.6 g/dL (3.5-5.0); ALKALINE PHOSPHATASE 70 U/L (38-126); ANION GAP 5 (5-19); ASPARTATE AMINO TRANSFERASE 27 U/L (14-36); BILIRUBIN,DIRECT 0.2 mg/dL (0.0-0.4); BILIRUBIN,TOTAL 0.5 mg/dL (0.2-1.3); BLOOD UREA NITROGEN 13 mg/dL (7-20); CALCIUM 9.8 mg/dL (8.4-10.2); CARBON DIOXIDE 33 mmol/L (22-30); CHLORIDE 102 mmol/L (98-107); GLUCOSE 110 mg/dL (75-110); TOTAL PROTEIN 6.9 g/dL (6.3-8.2)
[2019-04-17] MEDS ORDERED: METOCLOPRAMIDE HCL 10 MG TABLET PO ONE (04:49)
[2019-04-17] MEDS ORDERED: KETOROLAC TROMETHAMINE 10 MG TABLET PO ONE (04:49)
--- NOTE | 2019-04-17 08:26 | RADIOLOGY REPORT (SQ) ---
EXAM DESCRIPTION: MRI HEAD WITHOUT COMPLETED DATE/TIME: 04/17/2019 8:03 am REASON FOR STUDY: eval for possible stroke seen on CT COMPARISON: CT of the head without contrast from 04/17/2019. TECHNIQUE: Multiplanar imaging includes non-contrasted T1, T2, FLAIR, and diffusion with ADC map seq uences. Images stored on PACS. LIMITATIONS: None. FINDINGS: There is no restricted diffusion on the DWI. The hypodense focus in the right basal gangl ia demonstrates low signal on T1 and FLAIR and high signal on T2 and is therefore consistent with a p rominent Virchow Shaun space. There is no acute intracranial hemorrhage, vascular territorial infarc t, extra-axial fluid collection, mass effect or midline shift. There is no effacement of the cerebra l sulci or basal subarachnoid cisterns. The bolivar-white matter differentiation is preserved. The danielito iber the ventricles is concordant with the degree of sulcation. The intracranial vascular flow voids are preserved. The high T2 signal in the nasal passages and nasopharynx is nonspecific and clinical correlation for inflammation is recommended. The orbits and globes are intact and normal in appearance. There is no paranasal sinus air-fluid level. There is no abnormality of the calvarium. IMPRESSION: No acute intracranial abnormality. The hypodense focus in the right basal ganglia descr ibed on the correlative CT represents a prominent Virchow Shaun space. EVIDENCE OF ACUTE STROKE: NO. TECHNICAL DOCUMENTATION: JOB ID: [id number] [employer]- All Rights Reserved Reading location - IP/workstation name: [email or web address]
[2019-04-17 09:26] LABS: APPEARANCE,URINE SLIGHTLY-CLOUDY; BILIRUBIN,URINE NEGATIVE (NEGATIVE); COLOR,URINE YELLOW; GLUCOSE, URINE NEGATIVE (NEGATIVE); KETONES,URINE NEGATIVE (NEGATIVE); LEUKOCYTE ESTERASE,URINE NEGATIVE (NEGATIVE); NITRITE,URINE NEGATIVE (NEGATIVE); PROTEIN,URINE NEGATIVE (NEGATIVE)
--- NOTE | 2019-04-17 10:03 | ER Document Report ---
Doctor's Note Notes: 04/17/19 10:03 MRI as recorded. Headache is improved. Still no focal neurological deficits. Patient feels very comfortable going home. Instructions from the outgoing provider were that if the MRI was unremarkable, patient could be discharged home. Strict return precautions have been explained.
[2019-04-17 10:44] VITALS: BP 117/79
--- NOTE | 2019-04-17 11:20 | EKG REPORT ---
SEVERITY:- BORDERLINE ECG - SINUS RHYTHM BORDERLINE R WAVE PROGRESSION, ANTERIOR LEADS : Confirmed by: Luciano Hall 17-Apr-2019 11:19:11
== END 2019-04-17 10:11 | disposition home or self-care (01) ==
LOC: ER 22:27
DX: R51 Headache (principal); J06.9 Acute upper respiratory infection, unspecified; R05 Cough; R50.9 Fever, unspecified; R06.02 Shortness of breath; R09.81 Nasal congestion
CPT/HCPCS: 93005; 99284; 36415; 85025; 85610; 80053; 81001; 84484; 70551; 71046; 70450; 93010; J3490 ×2

== ENCOUNTER 2019-12-04 17:50 | Emergency (ER) | payer OTHER ==
[2019-12-04 18:05] VITALS: BP 130/80
[2019-12-04] MEDS ORDERED: IBUPROFEN 800 MG TABLET PO ONE (18:27)
[2019-12-04] MEDS ORDERED: CYCLOBENZAPRINE HCL 10 MG TABLET PO ONE (18:27)
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
== END 2019-12-04 20:17 | disposition home or self-care (01) ==
LOC: ER 17:50
DX: S60.512A Abrasion of left hand, initial encounter (principal); S60.511A Abrasion of right hand, initial encounter; S50.812A Abrasion of left forearm, initial encounter; S50.811A Abrasion of right forearm, initial encounter; S16.1XXA Strain of muscle, fascia and tendon at neck level, initial encounter; S80.12XA Contusion of left lower leg, initial encounter; S60.229A Contusion of unspecified hand, initial encounter; S60.819A Abrasion of unspecified wrist, initial encounter; M25.50 Pain in unspecified joint; M25.40 Effusion, unspecified joint; M79.10 Myalgia, unspecified site; V43.52XA Car driver injured in collision with other type car in traffic accident, initial encounter; W22.11XA Striking against or struck by driver side automobile airbag, initial encounter
CPT/HCPCS: 99283

== ENCOUNTER 2019-12-07 10:59 | Emergency (ER) | payer OTHER ==
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
[2019-12-07 13:48] VITALS: BP 141/72
== END 2019-12-07 13:40 | disposition home or self-care (01) ==
LOC: ER 10:59
DX: S39.012A Strain of muscle, fascia and tendon of lower back, initial encounter (principal); S16.1XXA Strain of muscle, fascia and tendon at neck level, initial encounter; M54.9 Dorsalgia, unspecified; M54.2 Cervicalgia; M25.512 Pain in left shoulder; V87.7XXA Person injured in collision between other specified motor vehicles (traffic), initial encounter; I10 Essential (primary) hypertension; E11.9 Type 2 diabetes mellitus without complications
CPT/HCPCS: 72070; 72110; 72125; 99284